=== PATIENT | male | born 1965 | race Caucasian/White ===

== ENCOUNTER → 2018-07-21 09:58 | Outpatient (CLI) | payer OTHER, SELFPAY ==
[2018-07-21 14:51] LABS: Basophils % 0.2 % (0.1-2.0); Eosinophils # 0.3 K/mm3 (0.0-0.4); Eosinophils % 2.5 % (0.1-12.0); Hematocrit 45.9 % (42.0-52.0); Hemoglobin 15.6 g/dL (14.1-18.0); Lymphocytes # 1.8 K/mm3 (0.7-4.5); Lymphocytes % 17.5 % (10-50); Mean Corpuscular Hemoglobin 32.8 pg (27.0-31.2); Mean Corpuscular Volume 96.2 fl (80-94); Mean Platelet Volume 9.3 fl (7.4-10.4); Monocytes # 0.4 K/mm3 (0.1-1.0); Monocytes % 4.4 % (1.7-9.3); Neutrophils # 7.6 K/mm3 (1.8-7.8); Neutrophils % 75.4 % (37.0-80.0); Platelet Count 138 K/mm3 (142-424); Red Blood Count 4.77 M/mm3 (4.60-6.20); Red Cell Distribution Width 13.7 % (11.5-17.5)
[2018-07-21 15:26] LABS: Alanine Aminotransferase 52 U/L (12-78); Albumin/Globulin Ratio 1.2 (1.1-1.8); Alkaline Phosphatase 107 U/L (46-116); Anion Gap 14.9 mEq/L (5-15); Aspartate Amino Transferase 35 U/L (15-37); Bilirubin,Total 0.5 mg/dL (0.2-1.0); Blood Urea Nitrogen 9 mg/dL (7-18); Calcium 8.6 mg/dL (8.5-10.1); Carbon Dioxide 26 mmol/L (21.0-32.0); Chloride 107 mmol/L (98-107); Creatinine,Serum 0.67 mg/dL (0.70-1.30); Estimated Glomerular Filt Rate 125 ml/min (>60); GFR (African American) 151 ML/MIN (>60); Globulin 3.3 gm/dl (1.3-3.2); Glucose 88 mg/dL (74-106); Potassium 3.9 mmoL/L (3.5-5.1); Sodium 144 mmol/L (136-145); Total Protein,Serum 7.3 gm/dL (6.4-8.2)
== END ==
PROVIDERS: PCP Nurse Practitioner Family; Visit Provider Nurse Practitioner Family
DX: R09.89 Other specified symptoms and signs involving the circulatory and respiratory systems (principal); R68.89 Other general symptoms and signs
CPT/HCPCS: 36415; 80053; 85025

== ENCOUNTER → 2022-10-13 06:49 | Outpatient (CLI) | payer OTHER, SELFPAY ==
--- NOTE | 2022-10-13 | CA_ITS ---
APPROVED REPORT Exam: Exercise Treadmill Technologist: Dennise Villa, Ht: 5 ft 11 in Wt: 164 lbs BSA: 1.94 m2 HR: 67 bpm BP: 143/93 mmHg Rhythm: sinus rhythm Medical History Medications: BisOPROLOL,,,,, CyclobenAPRINE,,,,, Cardiac Risk Factors: Smoking Stress Test Details Test: Yoel HR Resting HR: 83 bpm Max Heart Rate (APMHR): 165 bpm Max HR Achieved: 139 bpm Target HR (85% APMHR): 140 bpm % of APMHR: 84 Recovery HR: 109 bpm HR response to stress: Normal HR response to stress BP Resting BP: 132.0/101 mmHg Max BP: 159/93 mmHg Recovery BP: 158.0/102.0 mmHg BP response to stress: Normal blood pressure response to stress. ECG Resting ECG: Normal sinus rhythm, old inferior infarct, LVH, non-specific ST changes due to LV strain pattern Stress EC mm upsloping ST depression at peak stress Arrhythmia: None Recovery ECG: Return to baseline within 3 minutes of recovery Recovery Arrhythmia: None Clinical Exercise duration: 07:41 min Highest Stage Achieved: Exercise capacity: 10.1 METs Overall Exercise Capacity for Age: Average Stress ECG Conclusion During Yoel protocol pt experinced fatigue and dyspnea, test stopped due to fatigue. The patient was able to exercise for 7m, 41s, achieving a total of 10.1 METs. He has an average exercise capacity compared to age and sex matched peers. No arrhythmias noted. [address] depression at peak stress CONCLUSION Non-diagnostic ECG stress test due to baseline abnormalities. Myoview images are reported separately. Test Summary REST . . . . . . . Sitting REST . . . . . . . Standing REST 03:12 0.0 0.0 83 . 132/101 . . Stage 1 01:00 10.0 1.7 102 . . . . Stage 1 02:00 10.0 1.7 106 . . . . Stage 1 03:00 10.0 1.7 110 . 143/ 98 . . Stage 2 01:00 12.0 2.5 114 . . . . Stage 2 02:00 12.0 2.5 120 . 151/100 . . Stage 2 03:00 12.0 2.5 124 . 151/100 . . Stage 3 . . . . . . . Myoview Injected Stage 3 01:00 14.0 3.4 130 . . . . Stage 3 01:41 14.0 3.4 . . . . Stop exercise at 07:41 RECOVERY 01:00 0.0 0.0 130 . 132/ 80 . . RECOVERY 02:00 0.0 0.0 112 . 132/ 80 . . RECOVERY 03:00 0.0 0.0 109 . 158/102 . . RECOVERY 04:00 0.0 0.0 102 . 159/ 93 . . RECOVERY 05:00 0.0 0.0 90 . 150/ 93 . . RECOVERY 06:00 0.0 0.0 88 . 150/ 93 . . RECOVERY 06:30 0.0 0.0 90 . 153/ 97 . . Electronically signed by : Florida Plunkett, 10/14/2022 11:23:55
--- NOTE | 2022-10-13 06:56 | NM_ITS ---
APPROVED REPORT Exam: Nuclear Stress Test Indication: hypertension,,,tobacco user,,chest pain Patient Location: Outpatient Stress Tech: Dennise VARMA Tech:Alyssa Robison KATYKylee RT(R)(N) Ht: 5 ft 9 in Wt: 155 lbs HR: 83 bpm BP: 132/101 mmHg BSA: 1.85 m2 Rhythm: NSR TID: 1.07 BMI: 22.8 History: hypertension,,,tobacco user,,chest pain Procedure: Patient exercised on Yoel protocol 7:41 minutes and sec, resting heart rate 83 bpm, resting blood pressure 132/101 mmHg, with exercise maximum heart rate achived was 139 bpm which is 84 % of the maximum predicted heart rate and blood pressure was 159/93 mmHg. Test was stopped due to fatigue. Patient denied any complaint of chest pain. Patient has average exercise capacity, achieved 10.1 METs of workload on treadmill, the blood pressure response to exercise was normal. Cardiac Stress and Resting SPECT Images: Cardiac Stress and Resting SPECT images were obtained using technetium 99m Myoview 31.2 mCi stress and 10.48 mCi at rest. Resting and strtess imaging in both supine and prone positions demonstrate a large-sized, moderate, fixed perfusion defect in the inferior LV wall from the base and extending to the distal inferior LV wall. Gated imaging demonstrates mild reduction in global LV systolic function. There is moderate hypokinesis in the basal inferior LV wall. LVEF is calculated at 46% Conclusion: Large-sized, moderate, fixed perfusion defect in the inferior LV wall from the base and extending to the distal inferior LV wall. No evidence of reversible ischemia. Gated imaging demonstrates mild reduction in global LV systolic function. There is moderate hypokinesis in the basal inferior LV wall. LVEF is calculated at 46%. Electronically signed by : Florida Plunkett, 10/14/2022 11:27:59
--- NOTE | 2022-10-13 08:42 | CA_ITS ---
APPROVED REPORT EXAM: Comprehensive 2D, Doppler, and color-flow Echocardiogram Sedimentationist: Caterina Camacho RVT Ht: 5 ft 11 in Wt: 164lbs BSA: 1.94 BP: 158/88 mmHg Indications: CP,TACHYCARDIA,SMOKER,HTN,HARTMANN 2D Dimensions LVOT 1.92 cm (M/F) 1.5-2.5 LA Volume 53.60 mL LA Volume Index 27.63 mL/m2 (M/F) 16-34 M-Mode Dimensions RVDd 4.39 cm (0.9-2.6) LA Diam 3.69 cm (1.9-4.0) LVDd 3.60 cm (3.5-5.7) Ao Diam 3.39 cm (2.0-3.7) LVDs 2.54 cm (3.5-5.7) IVSd 0.83 cm (0.6-1.1) PWd 0.38 cm (0.6-1.1) EF (Teich) 57.40% FS 29.40% EDV (Teich) 54.40 mL TAPSE 2.25 (<1.7) ESV (Teich) 23.20 mL LV Diastology E Decel Time 150.00 (160-240 msec) E/A Ratio 0.6 MED E' 6.20 (< 7 cm/sec) E'/MED E' Ratio 8.35 (>14) LAT E' 7.40 (<10 cm/sec) E/LAT E' Ratio 7.00 (>14) Aortic Valve AO Peak GR. 7.20 mmHg Mitral Valve MV E Max Henry. 52.00 (40-130 cm/s) MV A Velocity 89.00 (40-130 cm/s) E/A Ratio 0.58 MV Decel. Time 150.00 (160-240 ms) MV PHT 44.00 ms Pulmonary Valve PV Peak Velocity 83.00 (50-150 cm/s) Tricuspid Valve TR P. Velocity 312.00 cm/s RAP Estimate 10.00 mmHg RVSP 48.80 mmHg Left Ventricle The left ventricle is normal size. There is normal LV systolic funtion. LVEF is 55%. There is normal left ventricular wall thickness. The left ventricular diastolic function is normal. Right Ventricle The right ventricle is normal size. There is normal right ventricular wall thickness. Atria The left atrium size is normal. The right atrium is normal. There is no Doppler evidence of atrial septal defect. Aortic Valve The aortic valve opens well. The aortic valve is normal in structure. The aortic valve is trileaflet. No aortic regurgitation is present. Mitral Valve The mitral valve is normal in structure. Mild mitral regurgitation. Tricuspid Valve The tricuspid valve is normal in structure Mild tricuspid regurgitation. The RVSP is 40-45 mmHg. Pulmonic Valve The pulmonary valve is normal in structure. Mild pulmonic regurgitation. Great Vessels The aortic root is normal in size. Pericardium There is no pericardial effusion. Other Information Study Quality: Adequate Conclusion Normal biventricular systolic function No significant valvular disease Elevated RVSP 40-45 mmHg Electronically signed by : Florida Plunkett, 10/13/2022 12:53:35
== END ==
PROVIDERS: PCP Nurse Practitioner Family; Visit Provider Nurse Practitioner Family
DX: R06.00 Dyspnea, unspecified (principal); R07.89 Other chest pain; R00.0 Tachycardia, unspecified; I10 Essential (primary) hypertension; F17.200 Nicotine dependence, unspecified, uncomplicated
CPT/HCPCS: 78452; 93017; 93306; A9502

== ENCOUNTER 2022-10-30 07:09 | Day surgery (SDC) | payer OTHER, SELFPAY ==
[2022-10-30] VITALS (9 sets, daily range): BP systolic 114–155; BP diastolic 73–91; PULSE 66–93; RESP 14–20; TEMP 36.9; O2SAT 92–99; BMI 27.2
--- NOTE | 2022-10-30 07:06 | IR_ITS ---
APPROVED REPORT Patient Location: Outpatient Client Onboarding Analyst: CAREN Monte RT (R) PROCEDURES Left heart catheterization Left ventriculogram Selective coronary angiogram INDICATION Abnormal Myoview, Angina pectoris, Informed consent was obtained prior to the procedure. COMPLICATIONS NONE Estimated Blood Loss: LESS THAN 10 ML TECHNIQUE One percent lidocaine used to anesthetize the right anterior aspect of the wrist. The right radial artery was accessed via the Seldinger technique. A 6 English sheath was placed in the right radial artery. 2.5 mg of Verapamil, 800 mcg of nitroglycerin, 1mg Lidocaine and 5000 U Heparin were given through the arterial sheath. The papa catheter was also used to perform left heart catheterization, left ventriculogram and selective coronary angiogram. At the end of the procedure the sheath was removed good hemostasis was achieved using Traclet band, patient was transferred to the postop holding area in stable condition. ANGIOGRAPHIC RESULTS The left main artery Normal The left anterior descending artery Has proximal 10 to 20% concentric smooth stenoses The circumflex artery Dominant with mild 10% luminal irregularities The right coronary artery Nondominant normal The LANDRY ventriculogram reveals Preserved at 50 to 55% The left ventricular end-diastolic pressure 15 mmHg IMPRESSION Mild nonocclusive coronary disease Preserved ejection fraction Borderline LVEDP PLAN 1. Risk factor modification 2. Continue medical management Electronically signed by : Jasper Nunez MD 10/30/2022 10:25:00
[2022-10-30 08:17] LABS: Chloride 107 mmol/L (98-107); Potassium 3.4 mmoL/L (3.5-5.1); Sodium 145 mmol/L (136-145)
[2022-10-30 08:20] LABS: Anion Gap 14.4 mEq/L (5-15); Blood Urea Nitrogen 10 mg/dl (9-20); Calcium 9.3 mg/dl (8.4-10.2); Carbon Dioxide 27 mmol/L (22.0-30.0); Creatinine Clearance Estimated 127 mL/min (50-200); Estimated Glomerular Filt Rate 100 ml/min (>60); GFR (African American) 121 ML/MIN (>60); Glucose 94 mg/dl (74-100)
[2022-10-30 08:21] LABS: Basophils % 0.3 % (0.1-2.0); Eosinophils # 0.6 K/mm3 (0.0-0.4); Eosinophils % 4.7 % (0.1-12.0); Hematocrit 43.6 % (42.0-52.0); Hemoglobin 13.5 g/dL (14.1-18.0); Lymphocytes # 2.5 K/mm3 (0.7-4.5); Lymphocytes % 20.6 % (10-50); Mean Corpuscular HGB Conc 30.8 g/dL (31.8-35.4); Mean Corpuscular Hemoglobin 29.3 pg (27.0-31.2); Mean Platelet Volume 7.6 fl (7.4-10.4); Monocytes # 0.6 K/mm3 (0.1-1.0); Neutrophils # 8.5 K/mm3 (1.8-7.8); Neutrophils % 69.4 % (37.0-80.0); Platelet Count 356 K/mm3 (142-424); Red Blood Count 4.59 M/mm3 (4.60-6.20); Red Cell Distribution Width 14.3 % (11.5-17.5); White Blood Count 12.2 K/mm3 (4.8-10.8)
== END 2022-10-30 13:22 | disposition home or self-care (01) ==
PROVIDERS: PCP Nurse Practitioner Family; Visit Provider Internal Medicine
DX: I10 Essential (primary) hypertension (principal); F17.210 Nicotine dependence, cigarettes, uncomplicated; I25.118 Atherosclerotic heart disease of native coronary artery with other forms of angina pectoris; R06.00 Dyspnea, unspecified; R94.39 Abnormal result of other cardiovascular function study
CPT/HCPCS: 80048; 85025; 93458; 99152; 99153; C1725; C1769; J1644; Q9967

== ENCOUNTER 2024-04-20 08:16 | Day surgery (SDC) | payer OTHER, SELFPAY ==
[2024-04-07 14:10] VITALS: BMI 26.5
[2024-04-18 17:17] VITALS: BMI 26.5
[2024-04-20] MEDS: LACTATED RINGERS 1000ML 1,000 ML 50 ML IV (08:52)
[2024-04-20 08:58] VITALS: BP 146/107; PULSE 89; RESP 18; TEMP 36.4; O2SAT 98
--- NOTE | 2024-04-20 09:20 | EXP.ANES.CKL ---
[facility] Disclaimer: The information contained in this section may have been updated after the patient was seen, as this information can be updated by other users. Medical History GERD (gastroesophageal reflux disease) Asthma Hyperlipidemia Hypertension Surgical History History of surgery Family History Other No significant family history Social History Smoking Status: Current every day smoker tobacco type: cigarettes alcohol intake: current substance use type: denies use current occupational status: unemployed Travel in the last 8 weeks: None [facility] Anesthesia Checklist Patient Identification Patient Identification: Arm Band, Family and Verbal (Name & ) Structural Data Admitted From: Home Planned Operative Procedure/s: EGD Consent for Planned Operative Procedure(s) Verified: Yes Verified Documents: Surgical Consent and History and Physical NPO Status Verified Time NPO: 08:45 Additional verifications Patient : No Anesthesia Reactions: No Cardiovascular Assessment Heart Sounds: S1 & S2 Pulse Rhythm: Irregular Peripheral Edema: No Airway Assessment Mallampati Score:: Class II C-Spine Mobility Assessed: Yes TMJ Mobility Assessed: Yes Dentition: Edentulous Neurological Assessment Level of Consciousness: Awake, Alert, Appropriate and Follows Commands Hx Seizures: No Numbness or tingling in extremities: No Anesthesia Plan Anesthesia Risk discussed: Yes Anesthesia Plan: Verified ASA Class: III Anesthesia Type: MAC
--- NOTE | 2024-04-20 10:29 | P.HP_ITS ---
History of Present Illness *Admission Date: 04/20/24 *Reason for visit:: Dysphagia *History of present illness: Mr. Brenner is a 58-year-old gentleman who is here for diagnostic evaluation of his dysphagia and heartburn. The examination is deemed medically necessary for diagnostic EGD. The patient has been seen, interviewed and examined prior to the procedure by both myself and the anesthesia provider. [facility] Disclaimer: The information contained in this section may have been updated after the patient was seen, as this information can be updated by other users. Medical History (Updated 04/20/24 @ 11:08 by Alvino Hinojosa II, MD) GERD (gastroesophageal reflux disease) Asthma Hyperlipidemia Hypertension Surgical History History of surgery Family History Other No significant family history Social History (Updated 04/20/24 @ 09:21 by Anuja Mc CRNA) Smoking Status: Current every day smoker tobacco type: cigarettes alcohol intake: current substance use type: denies use current occupational status: unemployed Travel in the last 8 weeks: None Have you lived/traveled outside [place] in past 30 days?: No Contact w/someone who lives/traveled outside US past 30 days?: No Exposure to someone with infectious disease in past 14 days?: No Do you have a fever (greater than 100.4 F or 38 C)?: No Have you tested positive for COVID-19: No Exposed to someone with COVID-19 in past 14 days?: No Do you have a sore throat?: No Do you have a cough?: No Do you have any weakness?: No Are you experiencing any nausea/vomitting?: No Do you have any diarrhea?: No Are you experiencing any unusual bleeding?: No Do you have any muscle aches/pain?: No Do you have any abdominal pain?: No Are you experiencing loss of taste or smell?: No Review of Systems Review of Systems Review of systems (narrative): Negative *Cardiovascular Comments: Negative *Gastrointestinal Comments: Negative *Genitourinary Comments: Negative *Musculoskeletal Comments: Negative *Neurologic Comments: Negative Meds Home Medications and Allergies Home Medications ?Medication ?Instructions ?Recorded ?Confirmed ?Type cyclobenzaprine 10 mg tablet 10 mg PO Q8H . 09/29/22 04/18/24 History rosuvastatin 40 mg tablet 40 mg PO DAILY . 10/14/22 04/18/24 History nitroglycerin 0.4 mg sublingual 0.4 mg sublingual Q5M PRN chest 10/23/22 04/18/24 Rx tablet pain #25 tabs aspirin 81 mg tablet,delayed 81 mg PO DAILY . #100 tabs 12/28/22 04/18/24 Rx release (Adult Low Dose Aspirin) losartan 25 mg tablet 25 mg PO DAILY . #30 tabs 06/30/23 04/18/24 Rx bisoprolol fumarate 5 mg tablet 5 mg PO DAILY . #90 tabs 01/26/24 04/18/24 Rx albuterol sulfate 90 mcg/actuation 2 puff inhalation NEEDED PRN 02/24/24 02/24/24 History aerosol inhaler (Ventolin HFA) Shortness Of Breath bupropion HCl 150 mg tablet,12 hr 150 mg PO BID 02/24/24 04/18/24 History sustained-release famotidine 20 mg tablet 20 mg PO DAILY 02/24/24 04/18/24 History fluticasone fur. 200 mcg-umeclid 1 inh inhalation ONCE 02/24/24 04/18/24 History 62.5 mcg-vilant 25 mcg inhalat.powder (Trelegy Ellipta) ipratropium 0.5 mg-albuterol 3 mg 1 ml inhalation DAILY 02/24/24 02/24/24 History (2.5 mg base)/3 mL nebulization soln meloxicam 15 mg tablet 15 mg PO DAILY 02/24/24 04/18/24 History ondansetron HCl 4 mg tablet 4 mg PO NEEDED PRN Nausea 02/24/24 04/18/24 History pantoprazole 40 mg tablet,delayed 40 mg PO ONCE 02/24/24 04/18/24 History release ropinirole 0.5 mg tablet 0.5 mg PO DAILY 02/24/24 04/18/24 History sildenafil 50 mg tablet 50 mg PO DAILY PRN urogenital 02/24/24 04/18/24 History trazodone 100 mg tablet 100 mg PO DAILY 02/24/24 04/18/24 History trazodone 50 mg tablet 50 mg PO DAILY 02/24/24 02/24/24 History New Prescriptions to Start Prescriptions: Allergies Allergy/AdvReac Type Severity Reaction Status Date / Time No Known Allergies Allergy Verified 04/20/24 08:55 Exam Data for Last 24 hours Vital signs and Labs for Last 24 Hours: Temp Pulse Resp BP Pulse Ox O2 Del Method 97.5 F L 89 18 146/107 H 98 Room Air 04/20/24 08:58 04/20/24 08:58 04/20/24 08:58 04/20/24 08:58 04/20/24 08:58 04/20/24 08:58 I & O for Last 24 hours: Intake & Output 04/17/24 04/18/24 04/19/24 04/20/24 23:59 23:59 23:59 23:59 Weight 185 lb *Routine HEENT Exam Head: Present normocephalic Eye: Present EOMI and PERRL ENT: Present mucous membranes moist *Routine Neck Exam Neck: Present supple *Routine Respiratory Exam Respiratory: Present CTA bilaterally *Routine Cardiovascular Exam Cardiovascular: Present RRR *Routine Abdominal Exam Abdominal: Present soft and normoactive bowel sounds; Absent tenderness *Routine Rectal Exam Rectal:: deferred *Routine Genitalia Exam Genitalia:: deferred *Routine Extremities Exam Extremities: Absent cyanosis, clubbing or edema *Routine Skin Exam Skin: Present warm; Absent rash *Routine Neurological Exam Neurological: Present alert and oriented X3 Assessment and Plan *Assessment and plan (1) Heartburn: Status: Acute Category: Medical Code(s): R12 - Heartburn (2) Dysphagia: Status: Acute Category: Medical Code(s): R13.10 - Dysphagia, unspecified Plan A/P: 1. Heartburn and dysphagia is the preprocedural diagnosis. The patient will be anesthetized/sedated using MAC sedation. The patient has been seen and examined. Cardiac and lung assessment prior to the examination is stable. Proceed with planned diagnostic EGD
[2024-04-20 10:49] VITALS: O2SAT 97
--- NOTE | 2024-04-20 11:21 | P.PCN_ITS ---
[facility] Procedure Note Date: 04/20/24 Time: 11:21 Procedure Note:: Upper Endoscopy Procedure Report: Esophagogastroduodenoscopy with cold biopsies and TTS balloon dilation Endoscopost: Alvino Hinojosa II, MD Referring Physician: LORNE Craig Date of Procedure: April 20, 2024 Equipment: Olympus GIF 190 standard upper endoscope Sedation: MAC sedation Indications: Mr. Brenner is a 58-year-old gentleman with dyspepsia, nausea, vomiting, heartburn and reflux over the last year. He has been on meloxicam daily for 3 to 4 months and takes BC powders. He also drinks alcohol and at least 6 beers daily. He also drinks a lot of carbonated beverages. He has been on pantoprazole for about a year. He takes famotidine for the last 3 months. He is still having coughing which results in vomiting. He reports bloating, belching, gassiness and constipation. He does get left upper quadrant abdominal pain. He also reports dysphagia and some globus sensation. His father and grandfather had cirrhosis. This is his first upper endoscopy. Procedure: Prior to the procedure, a history and physical exam was performed, and patient's medications and allergies were reviewed. The risks, benefits and alternatives of the sedation and procedure were discussed with the patient. All questions were answered and informed consent was obtained. The patient was brought to the procedure room. Patient identification and proposed procedure were verified by the physician and the nurse. The patient was placed in a left lateral decubitus position and the scope was passed under direct vision. Throughout the procedure, the patient's blood pressure, pulse, and oxygen saturations were monitored continuously. The upper GI endoscopy was accomplished without difficulty. The patient tolerated the procedure well. Findings: The scope was passed directly into the upper esophagus and advanced to the third portion of the duodenum. There was some lymphoid stasis in the post bulbar duodenum and peptic duodenitis of the duodenal bulb. Biopsies were obtained from the first portion of the duodenum. The scope was withdrawn through a normal pylorus and of the stomach. There was moderate bile reflux with some reactive gastropathy of the antrum. There was a 12 mm ulcer along the lesser curvature with some heaped folds surrounding this and this was in the body and lesser curvature of the stomach. Biopsies were taken from the margins of the ulcer. The ulcer was clean-based with smooth margins. Upon retroflexion there was a 3 cm hiatal hernia. The scope was then withdrawn into the esophagus. There was long segment Milian's esophagus. The top of the gastric folds was at 40 cm from the incisors and the Z-line/squamocolumnar junction was maximally at 32 cm from the incisors leaving an 8 cm segment of Milian's esophagus. This was Delcambre classification C7M8. Narrowband imaging was utilized and selected biopsies were taken distally to proximally and placed in 3 separate formalin jars. There were Milian's ulcerations. There was some reflux esophagitis. The entire esophagus was dilated to 60 Icelandic/20 mm with a TTS hydrostatic balloon. There was some resistance at the cricopharyngeus. Impression: 1. 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 Reflux esophagitis 3. 3 cm hiatal hernia 4. Gastric ulcer (12 mm)?clean-based along lesser curvature/body of stomach?rule out NSAID ulceration 5. Bile reflux with reactive gastropathy 6. Mild peptic duodenitis Plan: I will follow-up the biopsies. The patient will need to stop NSAIDs and modify habitual alcohol and tobacco. I would recommend Voquezna. I am also go ing to place him on misoprostol. I will discuss the findings with the patient and family.
[2024-04-20 11:25] VITALS: BP 107/77; PULSE 84; RESP 18; TEMP 36.6; O2SAT 96
[2024-04-20 11:35] VITALS: BP 99/68; PULSE 84; RESP 18; O2SAT 94
[2024-04-20 11:45] VITALS: BP 97/79; PULSE 81; RESP 18; O2SAT 93
[2024-04-20 11:55] VITALS: BP 93/73; PULSE 89; RESP 18; O2SAT 95
== END 2024-04-20 12:20 | disposition home or self-care (01) ==
PROVIDERS: PCP Nurse Practitioner Family; Visit Provider Internal Medicine Gastroenterology
PROC: 0DJ08ZZ Inspection of Upper Intestinal Tract, Via Natural or Artificial Opening Endoscopic (ICD-10-PCS; CPT 43239; principal; 2024-04-20 10:00)
DX: R12 Heartburn (principal); R13.10 Dysphagia, unspecified; K21.00 Gastro-esophageal reflux disease with esophagitis, without bleeding; K22.70 Barrett's esophagus without dysplasia; K25.9 Gastric ulcer, unspecified as acute or chronic, without hemorrhage or perforation; K44.9 Diaphragmatic hernia without obstruction or gangrene; K31.9 Disease of stomach and duodenum, unspecified; K29.80 Duodenitis without bleeding
CPT/HCPCS: 43239; 43249; C1726; J7120